=== PATIENT | female | born 1935 | race Caucasian/White ===

== ENCOUNTER 2021-03-14 19:45 | Emergency (ER) | payer MEDICARE, SELFPAY ==
[2021-03-14] VITALS (7 sets, daily range): BP systolic 111–157; BP diastolic 50–67; PULSE 69–113; RESP 20; TEMP 36.1–36.9; O2SAT 91–98
--- NOTE | ~2021-03-14 | CT_ITS ---
EXAMINATION: CTA chest abdomen pelvis DATE: 03/14/2021 20:47 INDICATION: Chest and abdominal pain, nausea. Hypotension, weakness. TECHNIQUE: Computed tomography (CT) of the chest, abdomen, and pelvis was performed with 100 cc Omnip aque 350 intravenous contrast. Automated exposure control and iterative reconstruction technique were employed. Exam dose: 615.47 mGy-cm total exam DLP. COMPARISON: 10/20/2017 limited abdominal ultrasound examination 10/06/2017 portable AP chest 08/01/2017 two-view chest 07/12/2017 MRI abdomen FINDINGS: CHEST CT: Aortic valve replacement. Heart size is normal. No pericardial effusion. No thoracic aortic aneurysm or dissection. No hilar or mediastinal mass lesion or lymphadenopathy. There is no evidence of pulmonary embolism. No pulmonary infiltrate or consolidation or pulmonary mass lesion is detected. There is minimal bilat eral dependent lower lobe atelectasis. There is an or more Moderate size sliding hiatal hernia. ABDOMEN/PELVIS CT: There is gallbladder distention and pericholecystic fluid and fat stranding. Acute cholecystitis is s uggested. There is intrahepatic and extrahepatic bile duct dilatation, the common bile duct measuring up to 1.4 cm. No hepatic space-occupying mass lesion is detected. Normal splenic size. No pancreatic mass lesion or calcification. The adrenal glands are unremarkable. Bilateral renal cysts, measuring up to 11 mm maximal dimension. There is cortical thinning and scarri ng at the medial upper pole of the left kidney. No urinary tract calculus or hydroureteronephrosis. There is a Gibbs catheter within the urinary bladder which is evacuated. There is extensive calcification of the abdominal aorta and iliac arteries but no aneurysm. There is a prominent of fecal material in the rectum and colon. There is diverticulosis of left and right colon; no CT evidence of diverticulitis. There is nonspecific thickening of the wall of the rectum and colon. No bowel obstruction or intraper itoneal free air. There is a small fat-containing umbilical hernia. Included skeletal structures are unremarkable. IMPRESSION: Aortic valve replacement Moderate hiatal hernia Gallbladder distention, pericholecystic fluid or fat stranding, suggesting acute cholecystitis Intrahepatic and extrahepatic bile duct dilatation, common bile duct measuring up to 1.4 cm. Consider MRCP or ERCP. Bilateral renal cysts Diverticulosis of left and right colon Reviewed, dictated and finalized at [facility] Reviewed, dictated and finalized at [facility]. IMPRESSION: Aortic valve replacement Moderate hiatal hernia Gallbladder distention, pericholecystic fluid or fat stranding, suggesting acut e cholecystitis Intrahepatic and extrahepatic bile duct dilatation, common bile duct measuring up to 1.4 cm. Consider MRCP or ERCP. Bilateral renal cysts Diverticulosis of left and right colon
--- NOTE | 2021-03-14 20:11 | ECG_ITS ---
Measurements Intervals [place] Rate: 80 P: 74 NH: 174 QRS: 8 QRSD: 83 T: 76 QT: 351 QTc: 407 Interpretive Statements SINUS RHYTHM VENTRICULAR PREMATURE COMPLEX AND FREQUENT ATRIAL PREMATURE COMPLEXES INCOMPLETE RIGHT BUNDLE BRANCH BLOCK BORDERLINE ST-T WAVE ABNORMALITY- ANT/HIGH LAT LEADS BASELINE ARTIFACT- I, II, III, AVR, AVL, AVF, V1-V6 ABNORMAL ECG Electronically Signed On 03-14-2021 21:18:[address] D.O.
--- NOTE | 2021-03-14 20:18 | ED.GENADULT ---
HPI - General Adult General Chief complaint: Abdominal Pain Stated complaint: AMB Source: patient, family and EMS Mode of arrival: EMS Limitations: clinical condition (pt feels weak) History of Present Illness HPI narrative: Pt complains today that she hasnt felt well all day, but tonight she ate some soup and then became very ill. Her stomach hurts and she has had diarrhea and vomiting. She feels very weak and very cold. SHe is very pale and weak, and having a good deal of abdominal pain Location: abdomen Radiation: back Severity: severe Pain Consistency: constant Exacerbating factors: eating Associated symptoms: loss of appetite and nausea/vomiting Related Data Home Medications Medication Instructions Recorded Confirmed aspirin [Baby Aspirin] 81 mg PO DAILY 03/14/21 03/14/21 atorvastatin 80 mg PO DAILY 03/14/21 03/14/21 carvedilol 6.25 mg PO BID 03/14/21 03/14/21 clopidogrel 75 mg PO DAILY 03/14/21 03/14/21 coenzyme Q10 [Co Q-10] 100 mg PO DAILY 03/14/21 03/14/21 lisinopril-hydrochlorothiazide 1 tablet PO DAILY 03/14/21 03/14/21 metformin 500 mg PO DAILY 03/14/21 03/14/21 ggcjrulrutdy-Zu-uruo-minerals 1 tablet PO DAILY 03/14/21 03/14/21 [Women's Multiple Vitamins] omeprazole 40 mg PO DAILY 03/14/21 03/14/21 prednisone 5 mg PO DAILY 03/14/21 03/14/21 Allergies Allergy/AdvReac Type Severity Reaction Status Date / Time amoxicillin Allergy Gastrointestinal Verified 03/14/21 20:58 Upset Review of Systems Constitutional: Constitutional: Reports chills, Reports fatigue, Denies fever(s) and Reports weakness Eyes: Eyes: Reports no additional eye complaints ENT: Reports system reviewed and no additional complaints, except as documented Cardiovascular: Cardiovascular: Reports no additional cardiovascular complaints Respiratory: Respiratory: Reports no additional respiratory complaints Gastrointestinal: Gastrointestinal: Reports abdominal pain, Reports diarrhea, Reports nausea and Reports vomiting Genitourinary: Genitourinary: Reports no additional female genitourinary complaints Musculoskeletal: Musculoskeletal: Reports no additional musculoskeletal complaints Integumentary/Breasts: Skin/Breast: Reports system reviewed and no additional complaints, except as docu Neurologic: Reports system reviewed and no additional complaints, except as documented Psychiatric: Psychiatric: Reports no additional psychiatric complaints Endocrine: Endocrine: Reports no additional endocrine complaints Hematologic/Lymphatic: Hematologic/Lymphatic: Reports no additional hematologic/lymphatic complaints Allergic/Immunologic: Allergic/Immunologic: Reports no additional allergic/immunologic complaints PMFSH Past Medical History Medical History (Updated 03/14/21 @ 22:44 by Radhika Ceballos MD) Afib Arthritis Hyperlipemia Social History Social History (Updated 03/14/21 @ 22:06 by Radhika Ceballos MD) Smoking status: Never smoker Alcohol intake: never Substance use: never Living arrangements: with family Gender identity (if verbalized by the patient): Female Exam Const: General: alert and ill appearing Nutritional Appearance: well nourished Orientation/consciousness: patient oriented x3 HENMT: Head: normal to inspection Other: very pale lips and face Eyes: Pupils: Equal, round and reactive pupils present Neck: Neck: normal visual inspection Chest: Chest palpation & inspection: normal inspection of the chest Resp: Effort & Inspection: normal respiratory effort Auscultation: clear to auscultation bilaterally Cardio: Rate: regular rate Rhythm: regular rhythm GI: GI Palp: Yes Soft to palpation, Yes Tenderness to palpation present (GI) (generalized ab discomfort) and No Guarding due to palpation present (GI) : General: Yes no CVA tenderness Back/Spine/Pelvis: Back: no CVA tenderness Skin: General skin exam: pallor Neuro: General: patient oriented x3 and moves all extremities
[2021-03-14] MEDS: SODIUM CHLORIDE 0.9% IV 1,000 ML 999 ML IV CONT ×2 (20:43→20:53)
[2021-03-14 21:13] LABS: Basophils Absolute Auto 0.04 K/mm3 (0.00-0.10); Basophils Percent Auto 0.3 % (0.0-1.0); Eosinophils Absolute Auto 0.01 K/mm3 (0.02-0.50); Eosinophils Percent Auto 0.1 % (1.0-6.0); Hematocrit 45.8 % (35.0-42.0); Hemoglobin 14.1 g/dL (11.7-13.8); Immature Granulocyte Percent A 0.7 % (0.0-0.0); Lymphocytes Absolute Auto 0.82 K/mm3 (1.10-4.50); Lymphocytes Percent Auto 5.5 % (18.0-42.0); Mean Corpuscular HGB Conc 30.8 g/dL (32.0-36.0); Mean Corpuscular Hemoglobin 31.2 pg (27.0-31.0); Mean Corpuscular Volume 101.3 fL (78.0-102.0); Mean Platelet Volume 9.4 fl (9.2-11.8); Monocytes Absolute Auto 1.04 K/mm3 (0.10-0.90); Neutrophils Absolute Auto 12.8 K/mm3 (1.7-7.2); Neutrophils Percent Auto 86.4 % (50.0-70.0); Platelet Count Result 206 K/mm3 (150-420); Red Blood Count 4.52 M/mm3 (4.20-5.40); Red Cell Distribution Width 13.8 % (11.6-14.4); White Blood Count 14.8 K/mm3 (4.8-10.8)
[2021-03-14] MEDS: fentaNYL CITRATE INJ (*CRX) 100 MCG/2 ML VIAL 50 MCG IV PUSH ×2 (21:23→22:05)
[2021-03-14 21:24] LABS: Add Urine Microscopic? YES; Appearance Urine Clear (Clear); Bilirubin Urine Negative (Negative); Blood Urine Negative (Negative); Color Urine Yellow (Yellow); Glucose Urine UA Negative (Negative); Ketones Urine Negative (Negative); Leukocyte Esterase Ur Negative LEU/UL (Negative); Nitrate Urine Negative (Negative); Protein Urine 1+ (Negative); Specific Grav Ur 1.015 (1.010-1.020)
[2021-03-14 21:31] LABS: Bacteria Urine Trace /hpf; RBC Urine 0-2 /hpf (0-2); Squamous Epithelial Cell Urine None seen /hpf (Few); WBC Urine 0-3 /hpf (0-3)
[2021-03-14 21:34] LABS: Alanine Aminotransferase 583 U/L (14-59); Albumin Level 2.8 g/dL (3.4-5.0); Alkaline Phosphatase 211 U/L (46-116); Anion Gap 12 mmol/L (8-16); Bilirubin,Total 1.9 mg/dL (0.00-1.00); Blood Urea Nitrogen 26 mg/dL (7-18); CRP 6.2 mg/dL (0.0-0.9); Calcium 8.3 mg/dL (8.5-10.1); Carbon Dioxide 20 mmol/L (21-32); Chloride 104 mmol/L (98-108); Estimated CRCL calculation 34 ml/min; Estimated Glomerular Filt Rate > 60; Glucose 120 mg/dL (70-99); Osmolality Calculated 287 mOsm/kg (285-295); Potassium 4.9 mmol/L (3.5-5.1); Sodium 136 mmol/L (136-145); Total Protein 6.4 g/dL (6.4-8.2); Troponin I 5.3 ng/L (0.00-60.4)
[2021-03-14 21:54] LABS: Lipase > 1500 U/L (73-393)
[2021-03-14] MEDS: HYDROmorphone HCL INJ (*CRX) 2 MG/ML VIAL 0.5 MG IV PUSH ×2 (22:29→23:01)
--- NOTE | 2021-03-14 22:49 | PC.NURSE ---
pt restless and continues moaning , rubbing abdomin. pt family member at bedside. pt repositioned in the bed repeatedly.
[2021-03-14 23:04] LABS: SARS-CoV-2 Ag Negative (Negative)
--- NOTE | 2021-03-14 23:53 | PC.NURSE ---
pt loaded to cot, no moaning. pt opens eyes when spoken to. and answers questions appropriately
--- NOTE | 2021-04-03 13:57 | PC.NURSE ---
03/14/21 NS 1000mls infused at 2200
== END 2021-03-14 23:53 | disposition short-term general hospital (02) ==
PROVIDERS: Emergency Provider Emergency Medicine; PCP Internal Medicine
DX: K81.0 Acute cholecystitis (principal); K85.10 Biliary acute pancreatitis without necrosis or infection; Z20.822 Contact with and (suspected) exposure to COVID-19; I48.91 Unspecified atrial fibrillation; E78.5 Hyperlipidemia, unspecified
CPT/HCPCS: 36415; 71275; 74174; 80053; 81001; 83605; 83690; 84484; 85025; 86140; 87040; 87426; 93005; 96361; 96365; 96375; 96376; 99285; C9803; J1170; J2543; J3010; J7030; Q9967

== ENCOUNTER 2021-03-15 00:23 | Inpatient (IN) | payer MEDICARE, SELFPAY ==
[2021-03-15] VITALS (16 sets, daily range): BP systolic 115–154; BP diastolic 47–63; PULSE 71–83; RESP 12–18; TEMP 36.6–37.3; O2SAT 90–97; BMI 21.4; BMI 21.1; BMI 21.0
--- NOTE | ~2021-03-15 | MR_ITS ---
EXAMINATION: MR MRCP wo/w con/w 3D wo ind DATE: 03/16/2021 07:29 INDICATION: Dilated bile duct. TECHNIQUE: Magnetic resonance imaging (MRI) of the abdomen was performed without and with 10 mL Multi Oswaldo intravenous contrast. Sequences included coronal T2-weighted FS FSE, coronal T2-weighted FSE, a xial T1-weighted LAVA, coronal FS FIESTA, axial dual-echo T1-weighted SPGR, coronal lava-FLEX, sagitt al T2-weighted FSE, axial T2-weighted FSE, and axial DWI. Thick-slab T2-weighted FSE images were obta ined for magnetic resonance cholangiopancreatography (MRCP). Maximum intensity projection 3-D reconst ructions of the volumetric data were created by the technologist. Postcontrast sequences included cor onal LAVA-flex and time course of axial T1-weighted LAVA. COMPARISON: Abdomen MRI 07/12/2017, CT abdomen and pelvis 03/14/2021, ultrasound 03/16/2021 FINDINGS: ABDOMEN MRI: There are small pleural effusions. There is a moderate-sized sliding hiatal hernia. The liver demonstrates patchy areas of increased T2-weighted signal intensity and heterogeneous early con trast enhancement. There are cysts in the liver measuring up to 8 mm. The liver demonstrates periport al edema. There is moderate intrahepatic biliary duct dilatation. The spleen is normal. The gallbladd er is normal in size with dependent sludge. There is gallbladder wall thickening. The pancreas and ad renal glands are normal. There are cysts in the kidneys measuring up to 11 mm on the right. There are no dilated loops of bowel. There is a small volume of ascites. There are no pathologically enlarged lymph nodes. ABDOMEN MRCP: The common duct measures 13 mm in diameter, worsened from 11 mm on 07/12/2017. No rocky docholithiasis. IMPRESSION: 1. Heterogeneous liver, likely nonspecific hepatitis. 2. Normal-sized gallbladder with sludge and gallbladder wall thickening. Gallbladder wall thickening may be secondary to interstitial edema or chronic liver disease. If there is concern for acute cholec ystitis, consider hepatobiliary scintigraphy. 3. Moderate intrahepatic biliary duct dilatation and dilated common duct with mild worsening from . No choledocholithiasis. 4. Small pleural effusions. 5. Small volume of ascites. 6. Moderate-sized sliding hiatal hernia. Reviewed, dictated and finalized at location A. IMPRESSION: 1. Heterogeneous liver, likely nonspecific hepatitis. 2. Normal-sized gallbladder with sludge and gallbladder wall thickening. Gallbl adder wall thickening may be secondary to interstitial edema or chronic liver d isease. If there is concern for acute cholecystitis, consider hepatobiliary sci ntigraphy. 3. Moderate intrahepatic biliary duct dilatation and dilated common duct with m ild worsening from 07/12/2017. No choledocholithiasis. 4. Small pleural effusions. 5. Small volume of ascites. 6. Moderate-sized sliding hiatal hernia.
--- NOTE | ~2021-03-15 | US_ITS ---
EXAMINATION: US abdomen limited DATE: 03/16/2021 08:13 INDICATION: Acute cholecystitis. TECHNIQUE: Multiple grayscale and Doppler ultrasound images of the abdomen were obtained. COMPARISON: Ultrasound 10/20/2017, MRCP 03/16/2021 FINDINGS: The visualized portions of the head and body of pancreas are normal. The liver is normal wi thout focal lesion. No liver surface nodularity. There is normal flow in main portal vein. The gallbl adder is normal in size. No gallstones. Gallbladder wall thickening is noted. There was no sonographi c Garcia sign. The common duct is dilated to 9 mm, but measured larger on today's MRCP. IMPRESSION: 1. Gallbladder wall thickening, which may be secondary to interstitial edema or chronic liver disease . If there is clinical concern for acute cholecystitis, consider hepatobiliary scintigraphy. 2. Dilated common duct. Reviewed, dictated and finalized at location A. IMPRESSION: 1. Gallbladder wall thickening, which may be secondary to interstitial edema or chronic liver disease. If there is clinical concern for acute cholecystitis, c onsider hepatobiliary scintigraphy. 2. Dilated common duct.
--- NOTE | 2021-03-15 00:59 | ADMGEN ---
This patient, Yaima Purvis, was admitted to IMU Room 203-01. Patient/family oriented to hospital policies and general routines including ID bracelet, bed and alarms, visiting hours, pain management, procedures, bathroom and other care routines, personal items, smoking policy, room service/diet, and visiting hours. Information on how to activate the Rapid Response Team has been discussed. Patient/Family are encouraged to report perceived risks to care and to ask questions if they do not understand what they are told or what they should do. Nancy Diaz RN
--- NOTE | 2021-03-15 02:54 | PM.IMHP ---
H&P: HPI History of Present Illness Date/Time: 03/15/21 02:54 Chief Complaint: Abdominal pain Narrative: 85-year-old female with past medical history of carotid artery disease, coronary disease, aortic valve replacement and type 2 diabetes who presented to the ER at [facility] via EMS due to abdominal pain. The patient reported that she had not felt well for couple of days but today woke up and had no appetite. Finally in the afternoon hours she tried some soup. After she tried the Super abdominal pain got precipitously worse. Pain is a 10/10 in intensity. It accompanied by some nausea and dry heaves. She reported that she had had the which nausea and dry heaves that she actually had a episode of stool incontinence mushy brown stool. She denies any hematochezia or melena. She has been feeling weak and chilled prior to coming to the outside ER. She denies any further chills, or fever. She denies any history of abdominal surgery. She has not had any recent travel. She is vaccinated against COVID-19 with the Moderna vaccine several months ago. She had never had any abdominal pain similar to this before. Her pain was worse with movement. And she did not notice any relieving factors. She reports that the abdominal pain was just bad but cannot give me a quality to the pain. She states it just hurts. She has not had any cough or congestion but does feel short of breath due to the abdominal pain. At the outside ER CT was performed which demonstrated evidence of acute cholecystitis and bile duct dilatation. She received 1 dose of Zosyn at the outside ER and 2 L of isotonic fluids. Evidently when the patient arrived to the outside she had an episode of hypotension that was described as vagal in nature. And her hypotension resolved after fluid bolus. She had a total of 100 mcg of fentanyl and between 1.5 and 2 mg of Dilaudid in a brief. While at the outside ER. The patient was somnolent when she initially arrived to our facility but after a couple of hours the patient woke to stimuli and answer questions appropriately. Review of Systems Review of Systems: 12 systems were reviewed with pertinent positives and negatives per HPI. Except as documented in the HPI, all other systems were reviewed and are negative. [facility] Past Medical History Medical History (Updated 03/15/21 @ 03:07 by Suri Avendano DO) Afib Arthritis Coronary artery disease Essential hypertension Hiatal hernia Hyperlipemia Peripheral artery disease Type 2 diabetes mellitus Surgical History Surgical History (Updated 03/15/21 @ 06:45 by Suri Avendano DO) History of coronary artery stent placement (~2010) Presence of internal carotid stent (~2010) Status post aortic valve replacement with porcine valve (~2017) Family History Family History (Updated 03/15/21 @ 06:54 by Suri Avendano DO) Mother Age older than 80 years Father Age older than 80 years Social History Social History (Updated 03/15/21 @ 06:59 by Suri Avendano DO) Social History: She is independent in activities of daily living. 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 She has 3 children. Gender identity (if verbalized by the patient): Female Spiritual care concerns: No Meds Home Medications and Allergies Home Medications Medication Instructions Recorded Confirmed Type aspirin [Baby Aspirin] 81 mg PO DAILY 03/14/21 03/15/21 History atorvastatin 80 mg PO DAILY 03/14/21 03/15/21 History carvedilol 6.25 mg PO BID 03/14/21 03/15/21 History clopidogrel 75 mg PO DAILY 03/14/21 03/15/21 History coenzyme Q10 [Co Q-10
[2021-03-15] MEDS: SODIUM CHLORIDE 0.9% IV 1,000 ML 150 ML IV CONT ×4 (03:45→20:10)
[2021-03-15 04:11] LABS: Basophils Percent Auto 0.4 % (0.2-1.2); Hemoglobin 14.2 g/dL (12.0-15.0); Immature Granulocyte Absolute 0.06 K/mm3 (0.00-0.031); Immature Granulocyte Percent A 0.5 % (0-0.5); Lymphocytes Absolute Auto 0.58 K/mm3 (0.9-3.2); Lymphocytes Percent Auto 5.2 % (18.3-44.2); Mean Corpuscular HGB Conc 32.3 g/dl (32-36); Mean Corpuscular Hemoglobin 30.7 pg (26-34); Mean Platelet Volume 9.1 fl (7.4-10.4); Monocytes Absolute Auto 0.7 K/mm3 (0.1-0.6); Monocytes Percent Auto 6.5 % (2.6-8.5); Neutrophils Absolute Auto 9.8 K/mm3 (1.3-6.7); Neutrophils Percent Auto 87.4 % (45.5-73.1); Platelet Count Result 187 k/mm3 (150-375); Red Blood Count 4.63 M/mm3 (4.2-5.4); Red Cell Distribution Width 14.2 % (11.5-14.5); White Blood Count 11.2 K/mm3 (4.5-10.0)
[2021-03-15 04:19] LABS: Lactic Acid Reflex 1.8 mmol/L (0.7-2.1)
[2021-03-15 04:20] LABS: Prothrombin Time 12.9 Seconds (11.1-14.7)
[2021-03-15 04:34] LABS: Albumin Level 3.5 g/dL (3.5-5.1); Alkaline Phosphatase 236 U/L (38-126); Anion Gap 5 mmol/L (8-16); Bilirubin,Total 1.3 mg/dL (0.2-1.3); Blood Urea Nitrogen 21 mg/dL (7-17); Calcium 8.2 mg/dL (8.4-10.2); Carbon Dioxide 26 mmol/L (22-30); Chloride 106 mmol/L (98-107); Estimated CRCL calculation 41 ml/min; Estimated Glomerular Filt Rate > 60; Glucose 175 mg/dL (65-110); Potassium 3.4 mmol/L (3.4-5.0); Sodium 137 mmol/L (137-145)
[2021-03-15 07:54] LABS: Alanine Aminotransferase 1001 U/L (4-35); Aspartate Amino Transferase 1328 U/L (14-36); Lipase 7852 U/L (23-300)
[2021-03-15] MEDS: FAMOTIDINE 20 MG/2 ML VIAL IV PUSH ×2 (09:08→20:10)
[2021-03-15 11:47] LABS: Glucose Point of Care 110 mg/dl (65-105)
--- NOTE | 2021-03-15 13:10 | PM.IMPN ---
Progress Note: A&P Assessment and Plan (1) Acute gallstone pancreatitis: Code(s): K85.10 - Biliary acute pancreatitis without necrosis or infection Status: Acute (2) Acute cholecystitis due to biliary calculus: Code(s): K80.00 - Calculus of gallbladder with acute cholecystitis without obstruction Status: Acute (3) Type 2 diabetes mellitus: Qualifiers: Diabetes mellitus retirement insulin use: without medical terminologist use Diabetes mellitus complication status: without complication Qualified Code(s): E11.9 - Type 2 diabetes mellitus without complications Code(s): E11.9 - Type 2 diabetes mellitus without complications Status: Acute (4) Lactic acidosis: Code(s): E87.2 - Acidosis Status: Acute Additional Plan Acute cholecystitis Acute gallstone pancreatitis Choledocholithiasis Lactic acidosis Elevated liver enzymes Diabetes mellitus type 2 Hypertension Coronary artery disease status post stent placement 2010 Status post aortic valve replacement with porcine valve 2017 Carotid artery stenosis status post stent placement in 2010 Atrial fibrillation Arthritis Hiatal hernia Peripheral artery disease DVT prophylaxis SCDs Plan: GI and General surgery has been consulted will keep her NPO and IV fluids as ordered. Continue IV analgesics and IV Zofran Need ERCP for choledocholithiasis when appropriate and subsequent cholecystectomy Labs in a.m. and lipase level in a.m. Continue Zosyn Subjective Date/time seen: 03/15/21 13:10 Interval history: Feeling better today. Abdominal pain has improved currently no nausea or vomiting. Denies any fever chills Review of Systems Review of Systems: All systems reviewed & are unremarkable except as noted in HPI and below (HPI) Exam Narrative: General: Ill-looking, comfortable not in acute distress HEENT: Mucous membranes are tacky, no oral pharyngeal erythema, no scleral icterus, no conjunctival pallor Respiratory: Clear to auscultation bilaterally, no increased work of breathing Cardiovascular: Regular rate, regular rhythm, no murmur, 2+ bilateral radial pedal pulses Gastrointestinal: Soft. Mildly distended, tender epigastric and right upper quadrant with guarding hypoactive bowel sounds Skin: Non jaundice, no pallor Musculoskeletal: No clubbing, cyanosis or edema Neurological: Alert and oriented x4 speech is clear, no focal motor deficits noted Psychiatric: Appropriate mood and affect, pleasant and cooperative : Gibbs catheter in place Objective Data Vital Signs Vital Signs: Vital Signs - 24 hr 03/15/21 00:32 03/15/21 02:00 03/15/21 04:00 Temperature 97.9 F 97.8 F Pulse Rate 76 80 76 Respiratory Rate 18 18 Blood Pressure 154/63 H 148/62 H Pulse Oximetry 90 93 03/15/21 06:00 03/15/21 08:00 03/15/21 10:00 Temperature 98.7 F Pulse Rate 73 78 79 Respiratory Rate 12 Blood Pressure 141/57 H Pulse Oximetry 97 03/15/21 11:48 03/15/21 12:00 Temperature 98.8 F Pulse Rate 83 73 Respiratory Rate 14 Blood Pressure 125/52 L Pulse Oximetry 94 Intake/Output Intake/Output: Intake & Output 03/12/21 03/13/21 03/14/21 03/15/21 23:59 23:59 23:59 23:59 Intake Total 1050 Output Total 300 Balance 750 Meds/Results Medications: Active Medications Generic Name Dose Route Start Last Admin Trade Name Freq PRN Reason Stop Dose Admin Dextrose 12.5 gm 03/15/21 02:53 Dextrose 50% 25 Gm/50 Ml Syringe IV PUSH PRN PRN Hypoglycemia Protocol Famotidine 20 mg 03/15/21 09:00 03/15/21 09:08 Famotidine 20 Mg/2 Ml Vial IV PUSH 20 mg Q12HR JARAD Administration Glucagon 1 mg 03/15/21 02:53 Glucagon For Inj 1 Mg Vial IM PRN PRN Hypoglycemia Protocol Glucose 15 gm 03/15/21 02:53 Glucose Oral Gel 15 Gm Of Glucse In 37.5 Gm Tube PO PRN PRN Hypoglycemia Protocol Hydromorphone HCl 0.5 mg 03/15/21 02:52 Hydromo
--- NOTE | 2021-03-15 16:38 | WPDGICN ---
Assessment and Plan Assessment and plan (1) Acute gallstone pancreatitis: Code(s): K85.10 - Biliary acute pancreatitis without necrosis or infection Status: Acute Assessment and Plan: I ordered MRCP and awaiting, if that shows that she has bile duct stone then will need to proceed with ercp tomorrow, hopefully stone passed but regardless will need to have cholecystectomy and surgery team on board started on iv antibiotics she is feeling better trend liver enzymes, lactic acid normal now (2) Cholecystitis, acute: Code(s): K81.0 - Acute cholecystitis Status: Inactive Assessment and Plan: antibiotics, npo for now awaiting mrcp (3) Lactic acidosis: Code(s): E87.2 - Acidosis Status: Acute Assessment and Plan: resolved (4) RUQ pain: Code(s): R10.11 - Right upper quadrant pain Status: Acute (5) Elevated liver enzymes: Code(s): R74.8 - Abnormal levels of other serum enzymes Status: Acute Assessment and Plan: from pancreatobiliary source denies previous episode will check hepatitis panel (6) Type 2 diabetes mellitus: Qualifiers: Diabetes mellitus terminal makeup operator insulin use: without penitentiary use Diabetes mellitus complication status: without complication Qualified Code(s): E11.9 - Type 2 diabetes mellitus without complications Code(s): E11.9 - Type 2 diabetes mellitus without complications Status: Acute (7) Status post aortic valve replacement with porcine valve: Onset Date: ~2017 Code(s): Z95.3 - Presence of xenogenic heart valve Status: Inactive GI Consult Note Consult date/time: 03/15/21 16:38 Reason for consult: elevated liver enzymes, ruq pain, cholecystitis HPI: Yaima Purvis is a 85 year old female with history of carotid artery disease, coronary disease on plavix, aortic valve replacement and type 2 diabetes who went to ER at [facility] via EMS due to new onset of abdominal pain. She has not feeling well for last two days with decrease appetite but yesterday after having a cup of noodle soup had severe pain in ruq with radiation to epigastric and her back, pain was severe, also had nausea and dry heaves. Denies history of abdominal surgery. CT scan reviewed that showed hiatal hernia, gallbladder distention, pericholecystic fluid or fat stranding, suggesting acute cholecystitis, intrahepatic and extrahepatic bile duct dilatation, common bile duct measuring up to 1.4 cm. She received antibiotics and transferred to us. Will be evaluated also by surgery. Also noted to have elevated liver enzymes with bili 1.9, transaminases 500-800's, wbc 14k. She is feeling better today. also had elevated lactic acid and lipase Review of Systems Constitutional: Constitutional: Denies chills Eyes: Eyes: Denies blurry vision ENT: Reports Normal hearing present Cardiovascular: Cardiovascular: Denies lightheadedness Respiratory: Respiratory: Denies cough Gastrointestinal: Gastrointestinal: Reports abdominal pain and Reports nausea Genitourinary: Genitourinary: Denies hematuria Musculoskeletal: Musculoskeletal: Denies neck pain Integumentary/Breasts: Skin/Breast: Denies dry skin Neurologic: Denies headache(s) Psychiatric: Psychiatric: Reports no additional psychiatric complaints [facility] Past Medical History Medical History (Updated 03/15/21 @ 16:46 by Jeronimo Syed MD) Afib Arthritis Coronary artery disease Elevated liver enzymes Essential hypertension Hiatal hernia Hyperlipemia Peripheral artery disease RUQ pain Type 2 diabetes mellitus Surgical History Surgical History (Updated 03/15/21 @ 16:46 by Jeronimo Syed MD) History of coronary artery stent placement (~2010) Presence of internal carotid stent (~2010) Status post aortic valve replacement with porcine valve (~2017) Family History Family History (Updated 03/15/21 @ 06:54 by Suri Avendano DO) Paige
--- NOTE | 2021-03-15 16:55 | PM.CNGS ---
Assessment and Plan Assessment and plan (1) Acute gallstone pancreatitis: Code(s): K85.10 - Biliary acute pancreatitis without necrosis or infection Status: Acute Assessment and Plan: Seems to be improving. May have passed a bile duct stone although lipase and liver enzymes are still quite elevated. I agree with Dr. Quezada consultation. If MRCP is negative for stones will proceed with lap choly with IOC. I suspect there will be choledocholithiasis and we will need to proceed with an ERCP. Patient will eventually need cholecystectomy as well. Will go ahead and try clear liquids but NPO after midnight. Continue IV Zosyn antibiotics. Check on results of MRCP and clinical status again in a.m.. History of Present Illness Consult details Consult date: 03/16/21 Reason for consult: abdominal pain Narrative: The patient is an 85-year-old woman who felt bad all day yesterday. She had some soup for supper and then became very ill. She noticed right upper quadrant abdominal pain that was severe. She had vomiting and also diarrhea. She had feeling of weakness and being cold. She was seen in the emergency room at [facility] in [place]. [place] scan there showed gallbladder distention with fat stranding suggesting of acute cholecystitis. No gallstones were noted. There was also intrahepatic and extrahepatic biliary ductal dilatation with common bile duct of 14 mm. She transferred to [facility]. Also noteworthy is the patient's lactate was 4.0 last night. Her lipase was over 1500. [place] white count [place] [address]. She has a history of coronary disease extracranial cerebrovascular disease and a aortic valve replacement. She also has a history of atrial fibrillation. She has had internal carotid stenting as well as coronary stenting. She takes Plavix.She was started on Zosyn antibiotics. This morning, she felt better. She did not have as much pain. Her white blood cell count decreased to 11,200. Lactate went from 4-1.8. Liver enzymes and lipase were actually higher this morning. She is seen in consultation. Review of Systems Review of Systems: All systems reviewed & are unremarkable except as noted in HPI and below Constitutional: Constitutional: Denies chills and Denies fever(s) Cardiovascular: Cardiovascular: Denies chest pain, Denies diaphoresis, Denies dyspnea and Denies paroxysmal nocturnal dyspnea Respiratory: Respiratory: Denies chest congestion, Denies cough and Denies dyspnea Integumentary/Breasts: Skin/Breast: Denies lesions and Denies rash [facility] Past Medical History Medical History Afib Arthritis Coronary artery disease Elevated liver enzymes Essential hypertension Hiatal hernia Hyperlipemia Peripheral artery disease RUQ pain Type 2 diabetes mellitus Surgical History Surgical History History of coronary artery stent placement (~2010) Presence of internal carotid stent (~2010) Status post aortic valve replacement with porcine valve (~2017) Family History Family History Mother Age older than 80 years Father Age older than 80 years Social History Social History Social History: She is independent in activities of daily living. 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 She has 3 children. Gender identity (if verbalized by the patient): Female Spiritual care concerns: No Meds Home Medications and Allergies Home Medi
[2021-03-15 18:41] LABS: Glucose Point of Care 114 mg/dl (65-105)
[2021-03-16] VITALS (17 sets, daily range): BP systolic 113–136; BP diastolic 52–68; PULSE 66–82; RESP 12–16; TEMP 36.6–37.1; O2SAT 93–97
[2021-03-16 00:53] LABS: Glucose Point of Care 102 mg/dl (65-105)
[2021-03-16 05:17] LABS: Basophils Percent Auto 0.2 % (0.2-1.2); Eosinophils Absolute Auto 0.1 K/mm3 (0-0.3); Eosinophils Percent Auto 1.1 % (0-4.4); Hematocrit 35.4 % (37.0-47.0); Hemoglobin 11.7 g/dL (12.0-15.0); Immature Granulocyte Absolute 0.03 K/mm3 (0.00-0.031); Immature Granulocyte Percent A 0.3 % (0-0.5); Lymphocytes Absolute Auto 1.17 K/mm3 (0.9-3.2); Lymphocytes Percent Auto 12.7 % (18.3-44.2); Mean Corpuscular HGB Conc 33.1 g/dl (32-36); Mean Corpuscular Hemoglobin 31.5 pg (26-34); Mean Corpuscular Volume 95.2 fl (80-100); Mean Platelet Volume 9.8 fl (7.4-10.4); Monocytes Absolute Auto 0.7 K/mm3 (0.1-0.6); Monocytes Percent Auto 7.4 % (2.6-8.5); Neutrophils Absolute Auto 7.2 K/mm3 (1.3-6.7); Neutrophils Percent Auto 78.3 % (45.5-73.1); Platelet Count Result 153 k/mm3 (150-375); Red Blood Count 3.72 M/mm3 (4.2-5.4); Red Cell Distribution Width 14.3 % (11.5-14.5); White Blood Count 9.2 K/mm3 (4.5-10.0)
[2021-03-16 05:35] LABS: Alanine Aminotransferase 525 U/L (4-35); Albumin Level 2.7 g/dL (3.5-5.1); Alkaline Phosphatase 154 U/L (38-126); Anion Gap 4 mmol/L (8-16); Aspartate Amino Transferase 417 U/L (14-36); Blood Urea Nitrogen 13 mg/dL (7-17); Calcium 7.3 mg/dL (8.4-10.2); Carbon Dioxide 24 mmol/L (22-30); Chloride 109 mmol/L (98-107); Estimated CRCL calculation 47 ml/min; Estimated Glomerular Filt Rate > 60; Glucose 102 mg/dL (65-110); Lipase 248 U/L (23-300); Potassium 2.9 mmol/L (3.4-5.0); Sodium 137 mmol/L (137-145)
[2021-03-16 06:54] LABS: Hepatitis B Surface Antigen Negative (Negative)
[2021-03-16 07:00] LABS: HAV RESULT Negative (Negative); Hepatitis B Core IgM Result Negative (Negative)
[2021-03-16 07:11] LABS: Hepatitis C Virus Antibody Negative (Negative)
[2021-03-16] MEDS: FAMOTIDINE 20 MG/2 ML VIAL IV PUSH ×2 (08:27→19:43)
[2021-03-16] MEDS: SODIUM CHLORIDE 0.9% IV 1,000 ML 150 ML IV CONT ×2 (09:57→19:40)
[2021-03-16 11:26] LABS: Glucose Point of Care 129 mg/dl (65-105)
--- NOTE | 2021-03-16 11:34 | PM.PNGS ---
Progress Note: A&P Assessment and Plan (1) Acute gallstone pancreatitis: Code(s): K85.10 - Biliary acute pancreatitis without necrosis or infection Status: Acute Assessment and Plan: MRCP negative for common bile duct stones. Consistent with ultrasound and suggests cholecystitis. With severe biliary ductal dilatation noted, I suspect she passed a common bile duct stone. She is feeling fine now. Liver enzymes and lipase are nearly normal. Will go ahead and resume low-fat diet. If tolerates can go home. I will schedule her for outpatient laparoscopic cholecystectomy with intraoperative cholangiogram in the near future. I discussed this procedure with her in detail today. The procedure the risks the benefits the usual time of recovery were thoroughly discussed. All questions were answered. She can go home either later today or tomorrow as per hospitalist and Dr. Quezada. Will schedule for surgery either next week or the following week. (2) Acute cholecystitis due to biliary calculus: Code(s): K80.00 - Calculus of gallbladder with acute cholecystitis without obstruction Status: Acute Assessment and Plan: Suggested on ultrasound and other imaging. Greatly improved. Try low-fat diet. As long as pain does not recur can go home later today or tomorrow. Plan outpatient lap choly with IOC as noted above. Subjective Subjective Date/Time Seen: 03/16/21 11:34 Patient reports: feels better, pain is less and afebrile Review of Systems Review of Systems: All systems reviewed & are unremarkable except as noted in HPI and below Constitutional: Constitutional: Reports as per HPI, Denies anorexia, Denies body ache(s), Denies chills, Denies fever(s), Denies headache(s) and Denies night sweats Gastrointestinal: Gastrointestinal: Reports as per HPI, Denies abdominal pain, Denies nausea and Denies vomiting Neurologic: Denies confusion and Denies headache(s) Exam Const: General: comfortable and no acute distress; No confusion Orientation/consciousness: patient oriented x3 and No confusion GI: Inspection: non-distended and scaphoid GI Palp: Yes Soft to palpation, No Tenderness to palpation present (GI), No Guarding due to palpation present (GI) and No Rebound tenderness present Auscultation: normal bowel sounds Neuro: General: patient oriented x3, no focal motor deficits and No confusion Extrem: General: no calf tenderness and no edema Psych: Affect: normal affect Insight: Good insight present (Psych) Judgement: Good judgement present (Psych) Objective Data Vital Signs Vital Signs: Vital Signs - 24 hr 03/15/21 11:48 03/15/21 12:00 03/15/21 13:27 Temperature 37.1 C Pulse Rate 83 73 76 Respiratory Rate 14 Blood Pressure 125/52 L Pulse Oximetry 94 03/15/21 15:59 03/15/21 16:00 03/15/21 17:44 Temperature 36.8 C Pulse Rate 77 71 73 Respiratory Rate 14 Blood Pressure 116/49 L Pulse Oximetry 96 03/15/21 18:40 03/15/21 20:00 03/15/21 22:00 Temperature 36.6 C Pulse Rate 74 78 73 Respiratory Rate 12 Blood Pressure 120/47 L Pulse Oximetry 95 03/15/21 23:41 03/16/21 00:00 03/16/21 02:00 Temperature 37.3 C Pulse Rate 71 73 68 Respiratory Rate 16 Blood Pressure 115/53 L Pulse Oximetry 94 03/16/21 03:52 03/16/21 04:00 03/16/21 06:00 Temperature 37.1 C Pulse Rate 82 75 72 Respiratory Rate 16 Blood Pressure 134/56 L Pulse Oximetry 93 03/16/21 07:48 03/16/21 08:00 03/16/21 10:00 Temperature 36.6 C Pulse Rate 70 78 66 Respiratory Rate 14 Blood Pressure 125/54 L Pulse Oximetry 93 03/16/21 11:27 Temperature 36.6 C Pulse Rate 72 Respiratory Rate 12 Blood Pressure 113/64 Pulse Oximetry 96 Intake/Output Intake/Output: Intake & Output 03/13/21 03/14/21 03/15/21 03/16/21 23:59 23:59 23:59 23:59 Intake Total 3700 1300 Output Total 1200 350 Balance 2500 950 Meds/Results Medications: Active M
--- NOTE | 2021-03-16 13:31 | PM.IMPN ---
Progress Note: A&P Assessment and Plan (1) Acute gallstone pancreatitis: Code(s): K85.10 - Biliary acute pancreatitis without necrosis or infection Status: Acute (2) Acute cholecystitis due to biliary calculus: Code(s): K80.00 - Calculus of gallbladder with acute cholecystitis without obstruction Status: Acute (3) Type 2 diabetes mellitus: Qualifiers: Diabetes mellitus nursing home insulin use: without predatory animal exterminator use Diabetes mellitus complication status: without complication Qualified Code(s): E11.9 - Type 2 diabetes mellitus without complications Code(s): E11.9 - Type 2 diabetes mellitus without complications Status: Acute (4) Lactic acidosis: Code(s): E87.2 - Acidosis Status: Acute Additional Plan Acute cholecystitis Acute gallstone pancreatitis Choledocholithiasis Lactic acidosis Elevated liver enzymes Diabetes mellitus type 2 Hypertension Coronary artery disease status post stent placement 2010 Status post aortic valve replacement with porcine valve 2017 Carotid artery stenosis status post stent placement in 2010 Atrial fibrillation Arthritis Hiatal hernia Peripheral artery disease DVT prophylaxis SCDs Plan: GI and General surgery has been consulted will keep her NPO and IV fluids as ordered. Continue IV analgesics and IV Zofran Need ERCP for choledocholithiasis when appropriate and subsequent cholecystectomy Labs in a.m. and lipase level in a.m. Continue Zosyn 03/16 MRCP this a.m. is pending. Continue NPO and GI and General surgery recommendation to Follow. Continue Zosyn and IV fluids as ordered. Subjective Date/time seen: 03/16/21 13:31 Interval history: feels better pain is better no nausea vomiting. She went for MRCP this morning remains NPO Review of Systems Review of Systems: All systems reviewed & are unremarkable except as noted in HPI and below (HPI) Exam Narrative: General: comfortable not in acute distress HEENT: Mucous membranes are tacky, no oral pharyngeal erythema, no scleral icterus, no conjunctival pallor Respiratory: Clear to auscultation bilaterally, no increased work of breathing Cardiovascular: Regular rate, regular rhythm, no murmur, 2+ bilateral radial pedal pulses Gastrointestinal: Soft. Mildly distended, mildly tender right upper quadrant, hypoactive bowel sounds Skin: Non jaundice, no pallor Musculoskeletal: No clubbing, cyanosis or edema Neurological: Alert and oriented x4 speech is clear, no focal motor deficits noted Psychiatric: Appropriate mood and affect, pleasant and cooperative : Gibbs catheter in place Objective Data Vital Signs Vital Signs: Vital Signs - 24 hr 03/15/21 15:59 03/15/21 16:00 03/15/21 17:44 Temperature 98.2 F Pulse Rate 77 71 73 Respiratory Rate 14 Blood Pressure 116/49 L Pulse Oximetry 96 03/15/21 18:40 03/15/21 20:00 03/15/21 22:00 Temperature 97.8 F Pulse Rate 74 78 73 Respiratory Rate 12 Blood Pressure 120/47 L Pulse Oximetry 95 03/15/21 23:41 03/16/21 00:00 03/16/21 02:00 Temperature 99.1 F Pulse Rate 71 73 68 Respiratory Rate 16 Blood Pressure 115/53 L Pulse Oximetry 94 03/16/21 03:52 03/16/21 04:00 03/16/21 06:00 Temperature 98.7 F Pulse Rate 82 75 72 Respiratory Rate 16 Blood Pressure 134/56 L Pulse Oximetry 93 03/16/21 07:48 03/16/21 08:00 03/16/21 10:00 Temperature 97.9 F Pulse Rate 70 78 66 Respiratory Rate 14 Blood Pressure 125/54 L Pulse Oximetry 93 03/16/21 11:27 Temperature 97.9 F Pulse Rate 72 Respiratory Rate 12 Blood Pressure 113/64 Pulse Oximetry 96 Intake/Output Intake/Output: Intake & Output 03/13/21 03/14/21 03/15/21 03/16/21 23:59 23:59 23:59 23:59 Intake Total 3700 1540 Output Total 1200 350 Balance 2500 1190 Meds/Results Medications: Active Medications Generic Name Dose Route Start Last Admin Trade Name Freq PRN Reason Stop Dose
--- NOTE | 2021-03-16 14:41 | WPDGIPROGNO ---
Progress Note: A&P Assessment and Plan (1) Acute gallstone pancreatitis: Code(s): K85.10 - Biliary acute pancreatitis without necrosis or infection Status: Acute Assessment and Plan: MRCP reviewed and no choledocholithiasis, clinically better liver enzymes slowly trending now, no more leukocytosis plan is to have lap rocky next week with IOC and continue abx home after repleting low K (2) Elevated liver enzymes: Code(s): R74.8 - Abnormal levels of other serum enzymes Status: Acute Assessment and Plan: hepatitis panel negative from cholecystitis trending down (3) RUQ pain: Code(s): R10.11 - Right upper quadrant pain Status: Acute Assessment and Plan: resolved (4) Type 2 diabetes mellitus: Qualifiers: Diabetes mellitus superintendent container terminal insulin use: without chcf use Diabetes mellitus complication status: without complication Qualified Code(s): E11.9 - Type 2 diabetes mellitus without complications Code(s): E11.9 - Type 2 diabetes mellitus without complications Status: Acute (5) Leukocytosis: Code(s): D72.829 - Elevated white blood cell count, unspecified Status: Acute Subjective Date/time seen: 03/16/21 14:41 Interval history: she is doing much better, tolerating diet Review of Systems Review of Systems: All systems reviewed & are unremarkable except as noted in HPI and below Exam Const: General: comfortable and no acute distress HENMT: General nose exam: Normal nares present Eyes: General: appearance normal, both eyes and all related structures Neck: Neck: no JVD Resp: Auscultation: clear to auscultation bilaterally Cardio: Rate: regular rate Rhythm: regular rhythm GI: Inspection: non-distended GI Palp: Yes Soft to palpation and No Guarding due to palpation present (GI) Auscultation: normal bowel sounds Skin: General skin exam: normal color Neuro: Speech: normal speech Motor exam (neuro): Normal motor muscle tone present throughout Extrem: General: normal to inspection Psych: Mental Status: mental status grossly normal Objective Data Vital Signs Vital Signs: Vital Signs - 24 hr 03/15/21 15:59 03/15/21 16:00 03/15/21 17:44 Temperature 98.2 F Pulse Rate 77 71 73 Respiratory Rate 14 Blood Pressure 116/49 L Pulse Oximetry 96 03/15/21 18:40 03/15/21 20:00 03/15/21 22:00 Temperature 97.8 F Pulse Rate 74 78 73 Respiratory Rate 12 Blood Pressure 120/47 L Pulse Oximetry 95 03/15/21 23:41 03/16/21 00:00 03/16/21 02:00 Temperature 99.1 F Pulse Rate 71 73 68 Respiratory Rate 16 Blood Pressure 115/53 L Pulse Oximetry 94 03/16/21 03:52 03/16/21 04:00 03/16/21 06:00 Temperature 98.7 F Pulse Rate 82 75 72 Respiratory Rate 16 Blood Pressure 134/56 L Pulse Oximetry 93 03/16/21 07:48 03/16/21 08:00 03/16/21 10:00 Temperature 97.9 F Pulse Rate 70 78 66 Respiratory Rate 14 Blood Pressure 125/54 L Pulse Oximetry 93 03/16/21 11:27 03/16/21 12:00 03/16/21 14:00 Temperature 97.9 F Pulse Rate 72 75 81 Respiratory Rate 12 Blood Pressure 113/64 Pulse Oximetry 96 Intake/Output Intake/Output: Intake & Output 03/13/21 03/14/21 03/15/21 03/16/21 23:59 23:59 23:59 23:59 Intake Total 3700 1540 Output Total 1200 350 Balance 2500 1190 Meds/Results Medications: Active Medications Generic Name Dose Route Start Last Admin Trade Name Freq PRN Reason Stop Dose Admin Dextrose 12.5 gm 03/15/21 02:53 Dextrose 50% 25 Gm/50 Ml Syringe IV PUSH PRN PRN Hypoglycemia Protocol Famotidine 20 mg 03/15/21 09:00 03/16/21 08:27 Famotidine 20 Mg/2 Ml Vial IV PUSH 20 mg Q12HR JARAD Administration Glucagon 1 mg 03/15/21 02:53 Glucagon For Inj 1 Mg Vial IM PRN PRN Hypoglycemia Protocol Glucose 15 gm 03/15/21 02:53 Glucose Oral Gel 15 Gm Of Glucse In 37.5 Gm Tube PO PRN
[2021-03-16 16:49] LABS: Glucose Point of Care 101 mg/dl (65-105)
[2021-03-16 23:43] LABS: Glucose Point of Care 89 mg/dl (65-105)
[2021-03-17] VITALS (7 sets, daily range): BP systolic 140–142; BP diastolic 63–67; PULSE 65–80; RESP 16; TEMP 36.6–36.7; O2SAT 96–100
[2021-03-17] MEDS: SODIUM CHLORIDE 0.9% IV 1,000 ML 150 ML IV CONT (02:55)
[2021-03-17 05:18] LABS: Basophils Percent Auto 0.4 % (0.2-1.2); Eosinophils Absolute Auto 0.2 K/mm3 (0-0.3); Eosinophils Percent Auto 2.3 % (0-4.4); Hematocrit 33.4 % (37.0-47.0); Hemoglobin 10.7 g/dL (12.0-15.0); Immature Granulocyte Absolute 0.04 K/mm3 (0.00-0.031); Immature Granulocyte Percent A 0.5 % (0-0.5); Lymphocytes Absolute Auto 1.04 K/mm3 (0.9-3.2); Lymphocytes Percent Auto 12.2 % (18.3-44.2); Mean Corpuscular Volume 93.6 fl (80-100); Mean Platelet Volume 9.6 fl (7.4-10.4); Monocytes Absolute Auto 0.5 K/mm3 (0.1-0.6); Monocytes Percent Auto 6.1 % (2.6-8.5); Neutrophils Absolute Auto 6.7 K/mm3 (1.3-6.7); Neutrophils Percent Auto 78.5 % (45.5-73.1); Platelet Count Result 142 k/mm3 (150-375); Red Blood Count 3.57 M/mm3 (4.2-5.4); White Blood Count 8.5 K/mm3 (4.5-10.0)
[2021-03-17 05:20] LABS: Alanine Aminotransferase 321 U/L (4-35); Albumin Level 2.7 g/dL (3.5-5.1); Alkaline Phosphatase 160 U/L (38-126); Anion Gap 6 mmol/L (8-16); Aspartate Amino Transferase 183 U/L (14-36); Bilirubin,Total 0.9 mg/dL (0.2-1.3); Blood Urea Nitrogen 8 mg/dL (7-17); Calcium 7.3 mg/dL (8.4-10.2); Carbon Dioxide 20 mmol/L (22-30); Chloride 110 mmol/L (98-107); Estimated CRCL calculation 56 ml/min; Estimated Glomerular Filt Rate > 60; Glucose 108 mg/dL (65-110); Potassium 3.2 mmol/L (3.4-5.0); Sodium 136 mmol/L (137-145)
[2021-03-17] MEDS: FAMOTIDINE 20 MG/2 ML VIAL IV PUSH (09:21)
--- NOTE | 2021-03-17 09:48 | PM.DS ---
DS: Admitting Diagnosis Admitting Diagnosis Abdominal pain DS: Discharge Diagnosis Discharge Diagnosis (1) Acute gallstone pancreatitis: Code(s): K85.10 - Biliary acute pancreatitis without necrosis or infection Status: Acute (2) Elevated liver enzymes: Code(s): R74.8 - Abnormal levels of other serum enzymes Status: Acute DS: Summary Hospital Course Hospital Course: This is an 85-year-old woman with past medical history of coronary disease, type 2 diabetes mellitus, atrial fibrillation, hypertension, hyperlipidemia, and peripheral arterial disease, presented on 03/15 for evaluation of abdominal pain. This was accompanied by nausea.No hematochezia or melena. Outside ER CT scan showed acute cholecystitis and bile duct dilatation. Specifically, gallbladder distention, pericholecystic fluid and fat stranding was seen, intrahepatic and extrahepatic bile duct dilatation with common bile duct measuring to 1.4 cm noted. She underwent MRCP 03/16. This showed heterogeneous liver, likely nonspecific hepatitis. Normal size gallbladder with sludge and gallbladder wall thickening, gallbladder wall thickening may be secondary to interstitial edema or chronic liver disease, moderate intrahepatic biliary duct dilatation and dilated common bile duct with mild worsening since prior exam is noted.No choledocholithiasis noted. Small effusions small volume ascites. Blood work showed lipase on admission [id number]. This trended down to 248 the day prior to discharge. Her liver function enzymes were also noted to be elevated on presentation but trended down during her stay. Hepatitis panel was negative. She was seen by Gastroenterology and General surgery during her stay. Overall impression is that she developed gallstone pancreatitis and had passed a biliary stone with plan of cholecystectomy in the next 1-2 weeks. During her stay, was initially NPO then her diet was advanced as her symptoms improve. On the day of discharge she tolerated her diet for the past 24 hours and was comfortable with minimal abdominal pain. During her stay potassium was noted to be low and was replaced. Time Spent with Patient Time attestation: Total time spent providing and/or coordinating discharge services: 33 Exam Narrative: Gen: Alert, NAD Abd: Soft, NT, ND Heart: RRR Lungs: CTAB Ext: No lower extremity edema DS: Data Data Completed and Pending Labs on day of discharge: Labs from last 24 hours 03/17/21 03/17/21 03/16/21 04:13 04:13 23:25 WBC 8.5 RBC 3.57 L Hgb 10.7 L Hct 33.4 L MCV 93.6 MCH 30.0 MCHC 32.0 RDW 14.0 Plt Count 142 L MPV 9.6 Immature Gran % (Auto) 0.5 Neut % (Auto) 78.5 H Lymph % (Auto) 12.2 L Tw[place]gs % (Auto) 6.1 Eos % (Auto) 2.3 Baso % (Auto) 0.4 Lymph # (Auto) 1.04 Tw[place]gs # (Auto) 0.5 Eos # (Auto) 0.2 Baso # (Auto) 0.0 Abs Immat Gran (auto) 0.04 H Absolute Neuts (auto) 6.7 Absolute Nucleated RBC 0.0 Nucleated RBC % 0.0 Sodium 136 L Potassium 3.2 L Chloride 110 H Carbon Dioxide 20 L Anion Gap 6 L BUN 8 D Creatinine 0.50 L Estim Creat Clear Calc 56 Estimated GFR > 60 Glucose 108 POC Capillary Glucose 89 Calcium 7.3 L Total Bilirubin 0.9 AST 183 H ALT 321 H Alkaline Phosphatase 160 H Total Protein 6.0 L Albumin 2.7 L 03/16/21 03/16/21 16:47 11:20 WBC RBC Hgb Hct MCV MCH MCHC RDW Plt Count MPV Immature Gran % (Auto) Neut % (Auto) Lymph % (Auto) Twiggs % (Auto) Eos % (Auto) Baso % (Auto) Lymph # (Auto) Twiggs # (Auto) Eos # (Auto) Baso # (Auto) Abs Immat Gran (auto) Absolute Neuts (auto) Absolute Nucleated RBC Nucleated RBC % Sodium Potassium Chloride Carbon Dioxide Anion Gap BUN Creatinine Estim Creat Clear Calc Estimated GFR Glucose POC Capillary Glucose 101 129 H Calcium Total Bilirub
[2021-03-17] MEDS: POTASSIUM CHLORIDE 20 MEQ TABLET 40 MEQ PO (09:58)
[2021-03-17 12:37] LABS: Glucose Point of Care 189 mg/dl (65-105)
== END 2021-03-17 13:00 | disposition home or self-care (01) | DRG 439 ==
PROVIDERS: Internal Medicine Gastroenterology; Admitting Provider Internal Medicine; PCP Internal Medicine; Visit Provider Internal Medicine
DX: K85.10 Biliary acute pancreatitis without necrosis or infection (principal); I48.20 Chronic atrial fibrillation, unspecified; K81.0 Acute cholecystitis; E87.2 Acidosis; R74.8 Abnormal levels of other serum enzymes; I25.10 Atherosclerotic heart disease of native coronary artery without angina pectoris; I10 Essential (primary) hypertension; E78.5 Hyperlipidemia, unspecified; E11.9 Type 2 diabetes mellitus without complications; I73.9 Peripheral vascular disease, unspecified; K44.9 Diaphragmatic hernia without obstruction or gangrene; M19.90 Unspecified osteoarthritis, unspecified site; Z95.5 Presence of coronary angioplasty implant and graft; Z95.2 Presence of prosthetic heart valve; Z87.891 Personal history of nicotine dependence; Z79.02 Long term (current) use of antithrombotics/antiplatelets
CPT/HCPCS: 36415; 74183; 76376; 76705; 80053; 80074; 82948; 83605; 83690; 85025; 85610; 97161; 97165; A9270; A9577; J2543; J3480; J7030

== ENCOUNTER 2021-03-22 17:17 | Observation (INO) | payer MEDICARE, SELFPAY ==
[2021-03-19 12:43] VITALS: BMI 23.1
--- NOTE | 2021-03-21 12:35 | WPDANESEPPF ---
Anes - Initial Pre Proc Eval Procedure: Operation Date: 03/22/21 14:00 Proposed Procedures p Laparoscopic Cholecystectomy with Intraoperative Cholangiograms - Lawson Burton MD Date/Time: 03/21/21 12:35 Surgeon: Lawson Burton MD Pre Op Diagnosis: Acute Cholecystitis with Biliary Calculus Patient Data Age: 85 Gender: F Height: 1.6 m Weight: 59.09 kg Allergies Allergy/AdvReac Type Severity Reaction Status Date / Time amoxicillin Allergy Gastrointestinal Verified 03/22/21 12:41 Upset Home Medications Medication Instructions Recorded Confirmed Type aspirin 81 mg PO DAILY 03/14/21 03/19/21 History atorvastatin 80 mg PO DAILY 03/14/21 03/19/21 History carvedilol 6.25 mg PO BID 03/14/21 03/19/21 History clopidogrel 75 mg PO DAILY 03/14/21 03/19/21 History coenzyme Q10 [Co Q-10] 100 mg PO DAILY 03/14/21 03/19/21 History lisinopril-hydrochlorothiazide 1 tablet PO DAILY 03/14/21 03/19/21 History metformin 500 mg PO DAILY 03/14/21 03/19/21 History scdkcvkortxv-Sg-ktnj-minerals 1 tablet PO DAILY 03/14/21 03/19/21 History omeprazole 40 mg PO DAILY 03/14/21 03/19/21 History prednisone 5 mg PO DAILY 03/14/21 03/19/21 History ciprofloxacin HCl 500 mg PO Q12H #8 tablet 03/16/21 03/19/21 Rx hydrocodone-acetaminophen 1 tablet PO HS PRN 03/19/21 03/19/21 History melatonin 2.5 mg HS 03/19/21 03/19/21 History Patient hx anesthesia problems: none Family hx anesthesia problems: none PMFSH Past Medical History Medical History (Updated 03/16/21 @ 14:45 by Jeronimo Syed MD) Afib Arthritis Coronary artery disease Elevated liver enzymes Essential hypertension Hiatal hernia Hyperlipemia Leukocytosis Peripheral artery disease RUQ pain Type 2 diabetes mellitus Surgical History Surgical History History of coronary artery stent placement (~2010) Presence of internal carotid stent (~2010) Status post aortic valve replacement with porcine valve (~2017) Family History Family History Mother Age older than 80 years Father Age older than 80 years Social History Social History (Updated 03/22/21 @ 12:26 by Conrado Vallejo DO) Social History: She is independent in activities of daily living. 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 She has 3 children. Gender identity (if verbalized by the patient): Female Spiritual care concerns: No Anes - Eval Final PreProcedure Day of Procedure 03/21/21 12:35 Patient weight: normal Heart: regular rate and rhythm Lungs: clear to auscultation and normal air movement Airway: Mallampati scale class II Neurological: alert and oriented Last oral intake: >/= 8 hours ASA classification: III Emergent: no Anesthetic plan: proceed Anesthesia type and monitoring: general ETT and standard monitoring Informed Consent: The patient's anesthetic plan and its attendant risks and benefits were discussed with the patient/family/POA. Questions were solicited and answers provided to the satisfaction of the patient/family/POA.
[2021-03-22] VITALS (10 sets, daily range): BP systolic 84–151; BP diastolic 33–71; PULSE 48–62; RESP 12–18; TEMP 35.7–36.2; O2SAT 90–100
--- NOTE | ~2021-03-22 | XR_ITS ---
EXAMINATION: XR cholangiogram surg 1st inj EXAM DATE: 03/22/2021 15:27 INDICATION: INTRA OP IOCS TECHNIQUE: Multiples Cine fluoroscopic images were obtained during injection of the cystic duct duri ng laparoscopic cholecystectomy. Procedure performed by Dr. Lawson Burton MD on 03/22/2021 15:27, radiologist was not present. Total fluoroscopic time of 30 seconds The DAP for this procedure was 0.3 mGym2. A total of 204 images sent to PACS from the exam. Correlation is made to CT abdomen 03/14 , MRCP 03/16. FINDINGS: The cystic duct has been injected. There is severe dilation of the common bile duct and mo derate dilation of the proper hepatic duct and imaged intrahepatic ducts. There are no intraluminal f illing defects within or strictures of the common bile duct or opacified hepatic ducts. Forward flow of contrast confirmed into the duodenum. Contrast also refluxed into the pancreatic duct, which is severely dilated with abrupt transition, si gnificantly narrowing for one centimeter just before the ampulla. This could be stricture caused by i nflammation, pancreatitis. Cholangiogram can also cause this appearance, but no mass identified on pr ior imaging and typically would expect pancreatic duct dilation to be constant (in this case duct dil ation is new compared to last week's imaging). IMPRESSION: 1. Biliary and pancreatic duct dilation with unexplained narrowing of pancreatic duct distally. Could be stricture from pancreatitis, but cholangiocarcinoma can have similar appearance. Consider follow- up nonemergent ERCP. 2. Patent CBD. No choledocholithiasis. Reviewed, dictated and finalized at location B. IMPRESSION: 1. Biliary and pancreatic duct dilation with unexplained narrowing of pancreati c duct distally. Could be stricture from pancreatitis, but cholangiocarcinoma c an have similar appearance. Consider follow-up nonemergent ERCP. 2. Patent CBD. No choledocholithiasis.
--- NOTE | 2021-03-22 10:17 | WPDHPUPDATE1 ---
History and Physical Update Update Date/Time: 03/22/21 10:17 History and Physical has been reviewed, including an updated exam of the patient. There are NO changes in the patient's condition. Risks, benefits, and alternatives have been discussed and questions answered. Patient agrees to proceed with procedure.
[2021-03-22] MEDS: KETOROLAC 15 MG/ML VIAL (*BKC) IV PUSH (12:23)
[2021-03-22] MEDS: ACETAMINOPHEN 500 MG TABLET 1000 MG PO (12:23)
[2021-03-22] MEDS: LACTATED RINGERS 1,000 ML 30 ML IV CONT ×2 (12:27→15:53)
[2021-03-22 12:29] LABS: Glucose Point of Care 120 mg/dl (65-105)
[2021-03-22 12:56] LABS: Alanine Aminotransferase 149 U/L (4-35); Albumin Level 4.2 g/dL (3.5-5.1); Alkaline Phosphatase 226 U/L (38-126); Amylase 90 U/L (30-110); Aspartate Amino Transferase 66 U/L (14-36); Bilirubin,Total 0.7 mg/dL (0.2-1.3); Lipase 163 U/L (23-300)
[2021-03-22] MEDS: ceFAZolin 2 GM/D5W 50 ML 2 GM/50 ML BAG IVPB (13:44)
--- NOTE | 2021-03-22 13:58 | P.OP_ITS ---
Procedure Note - Detailed Date of Procedure 03/22/21 Pre-op Diagnosis Biliary pancreatitis Post-op Diagnosis same Procedure Performed Laparoscopic cholecystectomy with intraoperative cholangiogram Surgeon Lawson Burton MD Cloud Operations Engineer R[facility] Ward Anesthesia general and local Indications Patient was admitted to the hospital last week with acute pancreatitis. She had gallstones in evidence of some gallbladder inflammation as well. Her pain resolved and she was able to be discharged. MRCP was negative for common bile duct stones. She is taken to surgery now as an outpatient for laparoscopic cholecystectomy with intraoperative cholangiogram. Findings Chronic inflammation, multiple stones, negative cholangiogram with prompt duodenal filling. Description of Procedure Patient was taken to surgery and induced into general anesthesia. The abdomen is prepped and draped. Trocars were placed in the usual fashion using 0.25% Marcaine with epinephrine an applied [employer] optical trocars. A 5 mm camera was used. The gallbladder was decompressed with a laparoscopic aspirator. The cholecystotomy was closed with a Vicryl endoloop. The gallbladder was then retracted anterosuperiorly. Dissection was carried out in the cholecystohepatic triangle. The cystic duct and cystic artery were dissected. The gallbladder was dissected off the liver its lower 3rd. Critical view was achieved. We securely clipped and divided the cystic artery. Additional dissection was performed on the cystic duct so that it was dissected out most of its length. A clip was placed on the distal gallbladder near the cystic duct. We then used the cystic duct scissors and opened the cystic duct near the gallbladder. A cholangiogram catheter was able to be passed into the cystic duct. C-arm fluoroscopy was brought into the field. Cine fluoroscopy was then performed with cholangiogram. Cholangiogram was reviewed by the radiologist and was negative. The cholangiogram catheter was removed. The cystic duct was securely clipped and divided. The gallbladder was then dissected free of its attachments to the liver. Cautery was used for hemostasis and most of the dissection. Eventually the gallbladder was completely freed. It was placed in an Endo-Catch bag retrieved through the 10 11 epigastric trocar site. The epigastric trocar was then replaced. We reviewed the right upper quadrant and gallbladder fossa. Irrigation and suctioning were carried out. All looked good with no evidence of bleeding or bile leakage. We then evacuated CO2 and removed the trocar sleeves. Skin wounds were closed with subcuticular running 4-0 Monocryl skin suture. The wounds were dressed with Exofin surgical adhesive. The patient was awakened and taken to recovery in good condition. Sponge and needle counts were correct x2. Estimated Blood Loss 10 Drains No Packing No Pathology yes (Gallbladder) Complications None Condition stable Disposition PACU
[2021-03-22] MEDS: BUPIVACAINE/EPINEPHRINE 0.25% 10 ML VIAL 30 ML INFILTRATE (15:36)
[2021-03-22 16:08] LABS: Glucose Point of Care 181 mg/dl (65-105)
--- NOTE | 2021-03-22 17:39 | ADMGEN ---
This patient, Yaima Purvis, was admitted to Medical Room 240. Received patient from PACU. Patient/family oriented to hospital policies and general routines including ID bracelet, bed and alarms, visiting hours, pain management, procedures, bathroom and other care routines, personal items, smoking policy, room service/diet, and visiting hours. Information on how to activate the Rapid Response Team has been discussed. Patient/Family are encouraged to report perceived risks to care and to ask questions if they do not understand what they are told or what they should do.
[2021-03-22] MEDS: LACTATED RINGERS 1,000 ML 100 ML IV CONT (18:01)
[2021-03-22] MEDS: PANTOPRAZOLE SODIUM IV 40 MG VIAL IV PUSH (20:25)
[2021-03-22 21:12] LABS: Glucose Point of Care 113 mg/dl (65-105)
[2021-03-23] MEDS: MELATONIN 3 MG TABLET BY MOUTH (01:21)
[2021-03-23 02:10] VITALS: BP 143/59; PULSE 57; RESP 16; TEMP 36.4; O2SAT 96
[2021-03-23] MEDS: LACTATED RINGERS 1,000 ML 100 ML IV CONT (03:18)
[2021-03-23 06:07] LABS: Hematocrit 36.8 % (37.0-47.0); Mean Corpuscular HGB Conc 29.9 g/dl (32-36); Mean Corpuscular Volume 100.3 fl (80-100); Mean Platelet Volume 9.2 fl (7.4-10.4); Platelet Count Result 383 k/mm3 (150-375); Red Blood Count 3.67 M/mm3 (4.2-5.4); Red Cell Distribution Width 14.3 % (11.5-14.5); White Blood Count 12.8 K/mm3 (4.5-10.0)
[2021-03-23 06:25] LABS: Alanine Aminotransferase 115 U/L (4-35); Albumin Level 3.1 g/dL (3.5-5.1); Alkaline Phosphatase 150 U/L (38-126); Anion Gap 7 mmol/L (8-16); Aspartate Amino Transferase 82 U/L (14-36); Bilirubin,Total 0.5 mg/dL (0.2-1.3); Blood Urea Nitrogen 17 mg/dL (7-17); Calcium 8.8 mg/dL (8.4-10.2); Carbon Dioxide 25 mmol/L (22-30); Chloride 107 mmol/L (98-107); Estimated CRCL calculation 41 ml/min; Estimated Glomerular Filt Rate > 60; Glucose 117 mg/dL (65-110); Sodium 139 mmol/L (137-145)
[2021-03-23 07:49] LABS: Glucose Point of Care 96 mg/dl (65-105)
[2021-03-23 08:01] VITALS: BP 149/64; PULSE 70; RESP 18; TEMP 36.9; O2SAT 96
[2021-03-23 08:05] VITALS: PULSE 70
[2021-03-23] MEDS: metFORMIN HCL XR 500 MG TAB.SR.24H PO (08:05)
[2021-03-23] MEDS: hydroCHLOROthiazide 12.5 MG CAPSULE PO (08:05)
[2021-03-23] MEDS: THERAPEUTIC MULTIVITAMINS/MINERALS TAB (*BKC) 1 TABLET PO (08:05)
[2021-03-23] MEDS: PANTOPRAZOLE SODIUM IV 40 MG VIAL IV PUSH (08:05)
[2021-03-23] MEDS: ASPIRIN 81 MG CHEWABLE TABLET PO (08:05)
[2021-03-23] MEDS: carvediloL 6.25 MG TABLET PO (08:05)
[2021-03-23] MEDS: lisinopriL 10 MG TABLET PO (08:05)
[2021-03-23] MEDS: ATORVASTATIN 40 MG TABLET 80 MG PO (08:06)
--- NOTE | 2021-03-23 09:22 | W.PM.PROC2 ---
Procedure Note - Detailed Date of Procedure 03/22/21 Pre-op Diagnosis Biliary pancreatitis, chronic cholecystitis with gallstones Post-op Diagnosis other ( gastric injury, biliary pancreatitis, chronic cholecystitis with gallstones) Procedure Performed repair gastric injury, laparoscopic cholecystectomy with intraoperative cholangiogram Surgeon Lawson Burton MD Production Consultant RICH Ward Anesthesia general and local Indications the patient is an 85-year-old woman who presented on March 15 with acute biliary pancreatitis. She had an MRCP which was negative for common bile duct stones suggesting she had passed a stone. There was pretty severe biliary ductal dilatation on her imaging. She was noted also to have gallstones and evidence of cholecystitis on imaging. The patient's pancreatitis resolved. She was discharged is now returned to surgery to proceed with laparoscopic cholecystectomy with intraoperative cholangiogram. Findings The stomach was stuck to the anterior abdominal wall and the initial epigastric trocar resulted in a gastric perforation. This required repair. The stomach was freed from the abdominal wall prior to the repair. Patient underwent laparoscopic cholecystectomy and had a lot of small vessel oozing. She had stopped her Plavix but does have a history of easy bleeding. Intraoperative cholangiogram showed very dilated extrahepatic in intrahepatic biliary system but no filling defects to suggest stones. There was some question of narrowing of the distal pancreatic duct with dilatation more proximally. This was felt to likely be due to her recent bout of pancreatitis. Cholecystectomy was otherwise uneventful other than more oozing of blood making the surgery more difficult due to the visual impairment. The blood loss was not significant enough to result in any hemodynamic changes. Description of Procedure The patient was taken to surgery and induced into general anesthesia. The abdomen was prepped and draped. The initial epigastric trocar was placed using [employer] optical trocars and placed in the usual fashion. Unfortunately, instead of going into the peritoneal cavity, it was evident that the trocar was in a hollow viscus. The trocar was removed. We placed it again this time in an intraperitoneal location. Using direct visualization, the right lower trocar was then placed. The camera was then moved to this position and it was evident that the injury was in the distal body or proximal antrum of the stomach near the greater curvature. an orogastric tube was placed by the Department of Anesthesia. The stomach was decompressed of the air that was within it. No gastric contents were leaking. We went ahead and positioned the epigastric port using a 12 mm port here. The right sided 5 mm port was placed that was in the midclavicular line. Finally a 10 11 port was placed more caudal than the umbilicus in the lower abdomen just to the right of the umbilicus. The gallbladder was then visualized. We returned our attention to the injury to the stomach. An atraumatic grasper was then used and the area of the gastric injury was elevated anteriorly. A laparoscopic TLC stapler was introduced through the 12 mm port in the epigastrium. It was positioned such that it would staple and removed the area of the gastric injury. When fired, it remove nearly all of the involved stomach. A 2nd firing was required with a reload. This resulted in complete excision of a portion of the stomach including the injury. Cautery over the staple line was used and hemostasis was achieved. We suction and irrigated the area, rechecking it and all looked good. We then proceeded with a laparoscopic cholecystectomy but did recheck the area several times during the gallbladder removal procedure. Gallbladder was decompressed with a laparoscopic aspirator. The cholecystotomy was then closed with a Vicryl endoloop. The gallbladder was retracted an
--- NOTE | 2021-03-23 09:45 | PM.DS ---
DS: Admitting Diagnosis Admitting Diagnosis Biliary pancreatitis, chronic cholecystitis with gallstones DS: Discharge Diagnosis Discharge Diagnosis (1) Gastric perforation: Code(s): K25.5 - Chronic or unspecified gastric ulcer with perforation Status: Acute Assessment and Plan: repair laparoscopically at the time of laparoscopic cholecystectomy with intraoperative cholangiogram 03/22/2021. (2) Acute gallstone pancreatitis: Code(s): K85.10 - Biliary acute pancreatitis without necrosis or infection Status: Acute Assessment and Plan: MRCP and intraoperative cholangiogram both negative for residual common bile duct stones. (3) Cholelithiasis with chronic cholecystitis: Qualifiers: Cholelithiasis location: gallbladder and bile duct Biliary obstruction: without biliary obstruction Qualified Code(s): K80.64 - Calculus of gallbladder and bile duct with chronic cholecystitis without obstruction Code(s): K80.10 - Calculus of gallbladder with chronic cholecystitis without obstruction Status: Chronic Assessment and Plan: Intraoperative evidence of significant cholecystitis with gallstones. DS: Summary Hospital Course Hospital Course: The patient had presented on 03/15 with acute biliary pancreatitis and evidence of cholecystitis with gallstones. Her abdominal pain and evidence of pancreatitis quickly resolved. She was discharged. She takes Plavix chronically and this was held while she was awaiting her surgery. She was taken back to the operating room with plans for outpatient laparoscopic cholecystectomy with intraoperative cholangiogram on 03/22/2021. During the surgery, the initial trocar caused a gastric injury which required laparoscopic repair. Also the surgery was considerably more bloody than usual even though the patient had stayed off her Plavix. There was quite a bit of gallbladder inflammation. The cholangiogram was negative. There was still a lot of biliary ductal dilatation and the distal cm of the pancreatic duct was somewhat narrowed, likely due to her recent episode of acute pancreatitis. Laparoscopic cholecystectomy was able to be performed. Estimated blood loss was 50 cc. The patient was observed overnight. She tolerated liquids quite well. On postop day 1. She was very comfortable. She had good bowel sounds and only the normal amount of postoperative discomfort. She was ambulating independently and comfortable on oral analgesics. Her hemoglobin and hematocrit actually were stable from the day before. She was able to be discharged later in the day on postoperative day 1. Her Plavix will continue to be held until 03/25/2021. Blood sugars were monitored during her stay and were under good control. Status at Discharge Cognitive/behavioral status at discharge: At baseline Functional status at discharge: independent ambulation Overall status at discharge: patient is progressing back to baseline Time Spent with Patient Time attestation: Total time spent providing and/or coordinating discharge services: Exam Const: General: comfortable and no acute distress; No confusion Orientation/consciousness: patient oriented x3 and No confusion Resp: Effort & Inspection: normal respiratory effort Auscultation: clear to auscultation bilaterally Cardio: Rate: regular rate Rhythm: regular rhythm GI: Inspection: non-distended and incision ( incisions dry and healing well) GI Palp: Yes Soft to palpation, Yes Tenderness to palpation present (GI) ( mild appropriate tenderness), No Guarding due to palpation present (GI), No Palpable mass present and No Rebound tenderness present Auscultation: normal bowel sounds and normoactive bowel sounds Neuro: General: patient oriented x3, no focal motor deficits and No confusion Extrem: General: no calf tenderness and no edema Psych: Appearance: well kempt Mental Status: other ( slight memory impairment but patient at
[2021-03-23 10:00] VITALS: BP 120/54; PULSE 57; RESP 20; TEMP 36.4; O2SAT 95
--- NOTE | 2021-03-23 10:54 | WPDANESPN ---
Anes - Prog Note Post-Op Date/Time: 03/23/21 10:54 Cardiovascular status: normal Respiratory status: normal Airway patency: baseline Mental status: baseline Post-Op hydration status: normal Vital Signs: Last Vital Signs Temp 36.9 C 03/23/21 08:01 Pulse 70 03/23/21 08:05 Resp 18 03/23/21 08:01 BP 149/64 H 03/23/21 08:01 Pulse Ox 96 03/23/21 08:01 Pain Score (VAS): no c/o pain I/O: Intake & Output 03/22/21 03/23/21 03/23/21 23:59 07:59 15:59 Intake Total 450 1300 Output Total 400 200 Balance 450 900 -200 Laboratory Tests 03/23/21 05:32 03/23/21 05:32 03/22/21 03/22/21 03/22/21 12:18 12:18 12:20 WBC RBC Hgb Hct MCV MCH MCHC RDW Plt Count MPV Sodium Potassium Chloride Carbon Dioxide Anion Gap BUN Creatinine Estim Creat Clear Calc Estimated GFR Glucose POC Capillary Glucose 120 H Calcium Total Bilirubin 0.7 Direct Bilirubin 0.0 AST 66 H ALT 149 H Alkaline Phosphatase 226 H Total Protein 8.0 Albumin 4.2 Amylase 90 Lipase 163 Blood Type O Positive Antibody Screen Negative 03/22/21 03/22/21 03/23/21 16:05 21:08 05:32 WBC 12.8 H RBC 3.67 L Hgb 11.0 L Hct 36.8 L MCV 100.3 H D MCH 30.0 MCHC 29.9 L RDW 14.3 Plt Count 383 H D MPV 9.2 Sodium Potassium Chloride Carbon Dioxide Anion Gap BUN Creatinine Estim Creat Clear Calc Estimated GFR Glucose POC Capillary Glucose 181 H 113 H Calcium Total Bilirubin Direct Bilirubin AST ALT Alkaline Phosphatase Total Protein Albumin Amylase Lipase Blood Type Antibody Screen 03/23/21 03/23/21 05:32 07:46 WBC RBC Hgb Hct MCV MCH MCHC RDW Plt Count MPV Sodium 139 Potassium 4.0 Chloride 107 Carbon Dioxide 25 Anion Gap 7 L BUN 17 Creatinine 0.70 Estim Creat Clear Calc 41 Estimated GFR > 60 Glucose 117 H POC Capillary Glucose 96 Calcium 8.8 Total Bilirubin 0.5 Direct Bilirubin AST 82 H ALT 115 H Alkaline Phosphatase 150 H Total Protein 6.0 L Albumin 3.1 L Amylase Lipase Blood Type Antibody Screen Post-procedural complaints: none Patient Feedback: Patient satisfied with anesthetic care.
== END 2021-03-23 14:00 | disposition home or self-care (01) ==
LOC: ANH2MED 17:31
PROVIDERS: Admitting Provider Surgery; PCP Internal Medicine; Visit Provider Surgery
PROC: 0FT44ZZ Resection of Gallbladder, Percutaneous Endoscopic Approach (ICD-10-PCS; CPT 47562; principal; 2021-03-22 14:00)
DX: K85.10 Biliary acute pancreatitis without necrosis or infection (principal); K81.1 Chronic cholecystitis; K91.71 Accidental puncture and laceration of a digestive system organ or structure during a digestive system procedure; I10 Essential (primary) hypertension; E11.51 Type 2 diabetes mellitus with diabetic peripheral angiopathy without gangrene; I48.91 Unspecified atrial fibrillation; I25.10 Atherosclerotic heart disease of native coronary artery without angina pectoris; E78.5 Hyperlipidemia, unspecified; Z95.5 Presence of coronary angioplasty implant and graft; Z95.3 Presence of xenogenic heart valve; Z87.891 Personal history of nicotine dependence; Z79.02 Long term (current) use of antithrombotics/antiplatelets; Z79.82 Long term (current) use of aspirin; Z79.84 Long term (current) use of oral hypoglycemic drugs
CPT/HCPCS: 47563; 43659; 36415; 74300; 80053; 80076; 82150; 82948; 83690; 85027; 86850; 86900; 86901; 88304; A9270; C1713; C9113; G0378; J0360; J0690; J1100; J1170; J1885; J2405; J2704; J3010; J7120; Q9966

== ENCOUNTER 2022-02-19 11:36 | Outpatient (CLI) | payer MEDICARE, SELFPAY | END 2022-02-19 11:37 | disposition home or self-care (01) | PROVIDERS: PCP Surgery; Visit Provider Specialist | DX: D22.71 Melanocytic nevi of right lower limb, including hip (principal) | CPT/HCPCS: 88305; 88342 ==